=== PATIENT | female | born 1990 | race Caucasian/White ===

== ENCOUNTER 2016-10-29 10:15 | Inpatient (IN) | payer OTHER ==
[~2016-10-29] VITALS: Ht 160 cm; Wt 74.5 kg
[2016-10-29 11:06] LABS: BASOPHIL % 0.4 % (0-2); PLATELET COUNT 337 x10^3mcL (130-400)
[2016-10-29 11:13] LABS: CALCIUM 9.2 mg/dL (8.5-10.1); CARBON DIOXIDE 26.5 mmol/L (21-32); CHLORIDE SERUM 107 mmol/L (98-107); GFR1 > 60 mL/min; GLUCOSE SERUM 89 mg/dL (74-106); POTASSIUM SERUM 3.9 mmol/L (3.5-5.1); SODIUM SERUM 141 mmol/L (136-145)
[2016-10-29 11:24] LABS: ALBUMIN 4.2 g/dL (3.4-5.0); ALKALINE PHOSPHATASE 64 U/L (46-116); ALT/SGPT 15 U/L (14-59); AMYLASE 34 U/L (25-115); AST/SGOT 10 U/L (15-37); BILIRUBIN TOTAL 0.4 mg/dL (0.20-1.00); CHOLESTEROL 179 mg/dL (<200); HDL CHOLESTEROL 42 mg/dL (40-60); LIPASE 142 IU/L (73-393); MAGNESIUM 1.8 mg/dL (1.8-2.4); T4(THYROXINE) 10.6 ug/dL (4.7-13.3)
[2016-10-29 11:25] LABS: TOTAL PROTEIN, SERUM 8.5 g/dL (6.4-8.2)
[2016-10-29 12:30] LABS: UA SPECIFIC GRAVITY 1.025 (1.005-1.035); microscopic required? YES; urine erythrocyte 2+ (NEGATIVE)
[2016-10-29 12:53] LABS: AMPHETAMINE QUAL UR NONE DETECTED (NEG <=1000)
[2016-10-29] MEDS ORDERED: BC (13:24)
[2016-10-29 15:13] LABS: CHOLESTEROL/HDL RATIO 4.3
[2016-10-29 15:34] VITALS: BP 109/75
[2016-10-29 15:36] LABS: T3 TOTAL 1.72 ng/mL
[2016-10-29 15:57] LABS: FREE T4 1.07 ng/dL (0.76-1.46); FREE THYROXINE INDEX 3.4 ug/dL (1.4-4.5); T4(THYROXINE) 11.8 ug/dL (4.7-13.3)
[2016-10-29 16:30] VITALS: BP 110/73
[2016-10-29] MEDS ORDERED: AVIANE1 TAB PO (18:01)
[2016-10-29 21:03] VITALS: BP 116/71
[2016-10-29] MEDS ORDERED: DICYCLOMINE HCL10 MG PO (21:45)
[2016-10-30 05:57] VITALS: BP 132/55
[2016-10-30 06:24] LABS: BASOPHIL % 0.5 % (0-2); PLATELET COUNT 288 x10^3mcL (130-400)
[2016-10-30 06:59] LABS: CALCIUM 8.6 mg/dL (8.5-10.1); CHLORIDE SERUM 106 mmol/L (98-107); GFR1 > 60 mL/min; GLUCOSE SERUM 79 mg/dL (74-106); MAGNESIUM 2.1 mg/dL (1.8-2.4); PHOSPHOROUS 3.9 mg/dL (2.5-4.9); POTASSIUM SERUM 3.8 mmol/L (3.5-5.1); SODIUM SERUM 142 mmol/L (136-145)
[2016-10-30 07:30] VITALS: BP 109/83
[2016-10-30 09:34] VITALS: BP 117/83
[2016-10-30 18:43] VITALS: BP 108/78
[2016-10-30 22:12] VITALS: BP 120/78
[2016-10-31 05:44] VITALS: BP 114/69
[2016-10-31 06:19] LABS: CALCIUM 8.1 mg/dL (8.5-10.1); CARBON DIOXIDE 27.8 mmol/L (21-32); CHLORIDE SERUM 111 mmol/L (98-107); CREATININE SERUM 0.9 mg/dL (0.6-1.0); GFR1 > 60 mL/min; GLUCOSE SERUM 86 mg/dL (74-106); POTASSIUM SERUM 4.5 mmol/L (3.5-5.1); SODIUM SERUM 143 mmol/L (136-145)
[2016-10-31 06:32] LABS: BASOPHIL % 0.4 % (0-2); PLATELET COUNT 260 x10^3mcL (130-400); RED CELL DISTRIBUTION WIDTH 13.1 % (11.5-14.5)
[2016-10-31] MEDS ORDERED: NEILMED SINUS R1 PKT NS (09:30)
[2016-10-31 09:55] VITALS: BP 126/96
[2016-10-31] MEDS ORDERED: PYR50 PO (10:18)
== END 2016-10-31 12:00 | disposition home or self-care (01) | DRG 52 ==
LOC: ED 10:15 → DU 14:26 → MU 14:26 → DU 15:10 → MU 10-30 06:20
PROVIDERS: Emergency Medicine; Family Medicine; ADMIT Family Medicine
DX: I67.4 Hypertensive encephalopathy (principal); I10 Essential (primary) hypertension; E78.5 Hyperlipidemia, unspecified; K58.9 Irritable bowel syndrome, unspecified; Z68.29 Body mass index [BMI] 29.0-29.9, adult; Z82.49 Family history of ischemic heart disease and other diseases of the circulatory system
CPT/HCPCS: 80307; 82962; 83880; 84207; 84439; A9579; J1885; J3420; J7030; Q0092; Q9967